=== PATIENT | male | born 1955 | race Caucasian/White ===

== ENCOUNTER 2019-11-27 08:33 | Day surgery (SDC) | payer BC, MEDICARE ==
[~2019-11-27] VITALS: Ht 175.3 cm; Wt 97.5 kg
[~2019-11-27 08:33] MED LIST: ALTOPREV40 MG PO; ASPIR 8181 MG PO; CELEBREX200 MG PO; FLOVENT DISKUS50 MCG INH; MAXZIDE 37.5 MG-1 EA PO; MELOXICAM15 MG PO; METOPROLOL SUCC25 MG PO; MIACALCIN200 UNIT/1 NAS; MICARDIS HCT 81 EACH PO; NARCAN4 MG NAS; NORVASC10 MG PO; PEPCID20 MG PO; PREDNISONE20 MG PO; VENLAFAXINE HC225 MG PO; VENLAFAXINE HCL75 M1 PO; ZANAFLEX4 M1 PO
--- NOTE | 2019-11-27 11:12 | NUR ---
11/27/19 1111 Ann-Marie Perkins 1110 ASSUMED CARE FROM ARNOLDO ESPARZA. PATIENT AWAKE BUT DROWSY. REPOSITIONS SELF TO LEFT SIDE. ENCOURAGED TO PASS GAS. DENIES PAIN OR NAUSEA. RESP EVEN AND UNLABORED, NC AT 3 LITERS.
--- NOTE | 2019-11-30 11:30 | OR ---
[facility] [address], [place] [address] Signed DATE OF OPERATION: 11/27/2019 SURGEON: Shaye Brewer MD PREOPERATIVE DIAGNOSIS: History of polyps (March 2016, hepatic flexure tubular adenoma). POSTOPERATIVE DIAGNOSES: 1. Sigmoid and left-sided diverticulosis. 2. Polyps x2 (right colon and left colon). PROCEDURE: Total colonoscopy to cecum with cold morcellation polypectomy x2. ANESTHESIA: Intravenous sedation, fentanyl 100 mcg and Versed 4 mg. INDICATIONS: This 64-year-old white man is a patient of Dr. Bobby Albright in [place], [place]. He had tubular adenoma excised with hepatic flexure in March 2016. He has no symptoms of bleeding, diarrhea, or constipation. He has had episodes of diverticulitis, treated clinically and with dietary changes. He has had no hospitalization from that. He has no family history of colon cancer. He is admitted at this time to undergo surveillance colonoscopy on the basis of his prior polyps. He understands the risks of bleeding, infection, perforation. FINDINGS: Prep was good. Complete colonoscopy was undertaken to the cecum. There were two small polyps, one in the right colon and one in the left, both were excised with cold morcellation technique. He had numerous diverticula of the sigmoid and left colon. There were no other findings of concern. DESCRIPTION OF PROCEDURE: The patient was brought to the endoscopy suite and placed in lateral decubitus position, given intravenous sedation to the point of slurred speech and nystagmus. Digital rectal examination was normal except for some external hemorrhoidal changes. An Olympus video colonoscope was passed into the rectum and manipulated throughout the colon, noting diverticular change of the sigmoid and left colon. The scope was ultimately passes to the cecum. The ileocecal valve and appendiceal orifice were well identified. Irrigation undertaken showing no sign of cecal problem. The scope was withdrawn. A Electronically Signed By: SHAYE BREWER MD 11/30/19 1130 PATIENT NAME: AIDE RIVERA OPERATIVE REPORT DATE OF : 53 REPORT #: [id number] PHYSICIAN: SHAYE BREWER MD PCP: BOBBY ALBRIGHT DO REPORT IS CONFIDENTIAL AND NOT TO BE RELEASED WITHOUT AUTHORIZATION [facility] [address], [place] [address] Signed small polyp was noted in the mid ascending colon, this was excised with cold morcellation technique completely. Further withdrawal of scope showed no abnormality until approximately 70 cm from the anal verge, where a small polyp was noted, this was excised with cold morcellation technique. The scope was further withdrawn and only diverticular changes were seen. Retroflexed view of the rectum was normal. Scope was removed, and the patient taken to the recovery room in good condition. CONCLUDING DIAGNOSIS: Polyps x2 and diverticulosis. PLAN: Recommend repeat colonoscopy in 5 years or sooner if clinically indicated. He will return to the ongoing care of Dr. Albright. MD REMBERTO Young/JUDAH /[id number] cc: Bobby Albright DO Copies: BOBBY ALBRIGHT DO ~ Electronically Signed By: SHAYE BREWER MD 11/30/19 1130 PATIENT NAME: AIDE RIVERA OPERATIVE REPORT DATE OF : 53 REPORT #: [id number] PHYSICIAN: SHAYE BREWER MD PCP: BOBBY ALBRIGHT DO REPORT IS CONFIDENTIAL AND NOT TO BE RELEASED WITHOUT AUTHORIZATION
--- NOTE | 2019-11-30 13:09 | PATH ---
[facility] [address] [facility] [place], [place] [address] Signed SPECIMEN(S): A ASCENDING POLYP SPECIMEN(S): B DESCENDING POLYP SPECIMEN SOURCE: A. ASCENDING POLYP B. DESCENDING POLYP CLINICAL HISTORY: History of colon polyps, diverticulosis. MICROSCOPIC DESCRIPTION: Histologic sections of all submitted blocks are examined by light microscopy. These findings, together with the gross examination, support the pathologic diagnosis. FINAL PATHOLOGIC DIAGNOSIS: A. Colon, ascending, polypectomy: - Benign colonic mucosa with prominent intramucosal lymphoid aggregate. - No evidence of neoplasia. B. Colon, descending, polypectomy: - Tubular adenoma. - There is no evidence of high-grade dysplasia or malignancy. TWK:cml:C2NR GROSS DESCRIPTION: Two specimens are received in two containers, labeled "KR." A. The specimen, labeled "KR, ascending colon polyp," is received in formalin and consists of one ro soft tissue fragment that measures 0.2 cm in greatest dimension. The specimen is entirely submitted in cassette (A1). B. The specimen, labeled "KR, descending colon polyp," is received in formalin and consists of one ro soft tissue fragment that measures 0.2 cm in greatest dimension. The specimen is entirely submitted in cassette (B1). ILEANA (under the direct supervision of a pathologist) The Gross Description was prepared using a voice recognition system. The report was reviewed for accuracy; however, sound-alike word errors, addition and/or deletions may occur. If there is any question about this report, please contact Client Services. PERFORMING LABORATORY: The technical component was performed by [employer], Drea Copeland, PATIENT NAME: AIDE RIVERA PATHOLOGY DATE OF : 53 REPORT #: [id number] PHYSICIAN: SUZANNE SANDOVAL PCP: JORGE ALBRIGHT DO REPORT IS CONFIDENTIAL AND NOT TO BE RELEASED WITHOUT AUTHORIZATION [facility] [address] [place], [place] [address] Signed [facility] [place] [facility] [place] [address] (It Technical Specialist: Grisel Rios MD; CLIA# [id number]). Professional interpretation was performed by [facility], [address] [address] (CLIA# [id number]). Diagnostician: Sharan Mckinney MD Pathologist Electronically Signed 11/30/2019 Copies: ~ PATIENT NAME: AIDE RIVERA PATHOLOGY DATE OF : 53 REPORT #: [id number] PHYSICIAN: SUZANNE SANDOVAL PCP: JORGE ALBRIGHT DO REPORT IS CONFIDENTIAL AND NOT TO BE RELEASED WITHOUT AUTHORIZATION
== END 2019-11-27 11:40 | disposition home or self-care (01) ==
LOC: OPS 08:33 → DS 08:33 → OPS 11:40
PROVIDERS: ATTEND Surgery
PROC: 0DBM8ZZ Excision of Descending Colon, Via Natural or Artificial Opening Endoscopic (ICD-10-PCS; 2019-11-27)
PROC: 0DBK8ZZ Excision of Ascending Colon, Via Natural or Artificial Opening Endoscopic (ICD-10-PCS; principal; 2019-11-27 08:30)
DX: Z12.11 Encounter for screening for malignant neoplasm of colon (principal); D12.4 Benign neoplasm of descending colon; K57.30 Diverticulosis of large intestine without perforation or abscess without bleeding; I10 Essential (primary) hypertension; E78.5 Hyperlipidemia, unspecified; F41.9 Anxiety disorder, unspecified; F32.9 Major depressive disorder, single episode, unspecified; K21.9 Gastro-esophageal reflux disease without esophagitis; G47.30 Sleep apnea, unspecified; Z99.89 Dependence on other enabling machines and devices; Z86.010 Personal history of colon polyps; Z88.8 Allergy status to other drugs, medicaments and biological substances; Z79.899 Other long term (current) drug therapy
CPT/HCPCS: 99153; G0500; J2250; J3010; J7121

== ENCOUNTER 2020-08-14 07:42 | Emergency (ER) | payer MEDICARE, OTHER ==
[~2020-08-14] VITALS: Ht 175.3 cm; Wt 97.5 kg
[2020-08-14] MEDS ORDERED: PRILOSEC10 M1 PO (08:04)
[2020-08-14] MEDS ORDERED: PREDNISONE20 MG PO (08:33)
== END 2020-08-14 11:04 | disposition home or self-care (01) ==
LOC: ED 07:42
DX: M54.32 Sciatica, left side (principal); I95.9 Hypotension, unspecified; Z88.8 Allergy status to other drugs, medicaments and biological substances; Z79.899 Other long term (current) drug therapy
CPT/HCPCS: 74174; 74175; 74177; 80053; 85025; 85610; 96375; 99285-25; J1100; J1885; Q9967